=== PATIENT | male | born 1980 | race Caucasian/White ===

== ENCOUNTER → 2020-06-30 | Outpatient (CLI) | payer OTHER ==
[~2020-06-30] MED LIST: ASPIRIN EC81 MG PO; ATORVASTATIN CA10 MG PO; BENICAR20 MG PO; CARVEDILOL25 MG PO; D3-501250 MCG PO; ELIQUIS 5 MG TAB5 MG PO; FUROSEMIDE40 MG PO; IRON325 M1 PO; K-DUR TAB 20 M20 MEQ PO; LEVOTHYROXINE75 MC1 PO; LYRICA225 MG PO; NESINA25 MG PO
== END ==
LOC: HEART 5 09:21
DX: I11.9 Hypertensive heart disease without heart failure (principal); R06.02 Shortness of breath; I07.1 Rheumatic tricuspid insufficiency; I27.20 Pulmonary hypertension, unspecified; I31.3 Pericardial effusion (noninflammatory); R93.1 Abnormal findings on diagnostic imaging of heart and coronary circulation
CPT/HCPCS: 93306

== ENCOUNTER 2020-10-11 04:09 | Inpatient (IN) | payer OTHER ==
[~2020-10-11] VITALS: Ht 185.4 cm; Wt 168.3 kg
[2020-10-11 05:35] LABS: HEMOGLOBIN 13.3 gm/dl (14.0-17.5); RED BLOOD COUNT 5.31 M/UL (4.20-5.50); WHITE BLOOD COUNT 6.4 K/UL (4.5-11.0)
[2020-10-11] MEDS ORDERED: K-DUR TAB 20 M20 MEQ PO (10:00)
[2020-10-11] MEDS ORDERED: IRON325 M1 PO (10:00)
[2020-10-11] MEDS ORDERED: ATORVASTATIN CA10 MG PO (10:00)
[2020-10-11] MEDS ORDERED: BENICAR20 MG PO (10:01)
[2020-10-11] MEDS ORDERED: FUROSEMIDE40 MG PO (10:01)
[2020-10-11] MEDS ORDERED: LEVOTHYROXINE75 MC1 PO (10:01)
[2020-10-11] MEDS ORDERED: LYRICA225 MG PO (10:02)
[2020-10-11] MEDS ORDERED: CARVEDILOL25 MG PO (10:03)
[2020-10-11] MEDS ORDERED: ASPIRIN EC81 MG PO (10:03)
[2020-10-11] MEDS ORDERED: NESINA25 MG PO (10:03)
[2020-10-11] MEDS ORDERED: D3-501250 MCG PO (10:05)
[2020-10-12 06:16] LABS: HEMOGLOBIN 12.1 gm/dl (14.0-17.5); RED BLOOD COUNT 4.87 M/UL (4.20-5.50)
[2020-10-12 06:17] LABS: WHITE BLOOD COUNT 3.5 K/UL (4.5-11.0)
[2020-10-12 06:31] LABS: BUN/CREATININE RATIO 18 (0-10)
[2020-10-13 05:42] LABS: HEMOGLOBIN 12.9 gm/dl (14.0-17.5); RED BLOOD COUNT 5.15 M/UL (4.20-5.50)
[2020-10-13 05:51] LABS: WHITE BLOOD COUNT 5.1 K/UL (4.5-11.0)
[2020-10-13 06:02] LABS: BUN/CREATININE RATIO 23 (0-10)
[2020-10-14 04:19] LABS: RED BLOOD COUNT 5.22 M/UL (4.20-5.50)
[2020-10-14 04:27] LABS: WHITE BLOOD COUNT 6.6 K/UL (4.5-11.0)
[2020-10-14 04:43] LABS: BUN/CREATININE RATIO 23 (0-10)
--- NOTE | 2020-10-14 10:00 | NUR ---
PATIENT O2 SAT ON ROOM AIR 99% AT REST. 97% WITH ACTIVITY ON ROOMAIR. WCTM
[2020-10-15 06:37] LABS: HEMOGLOBIN 13.2 gm/dl (14.0-17.5); RED BLOOD COUNT 5.27 M/UL (4.20-5.50); WHITE BLOOD COUNT 7.5 K/UL (4.5-11.0)
[2020-10-15] MEDS ORDERED: ELIQUIS 5 MG TAB5 MG PO (09:12)
--- NOTE | 2020-10-15 10:03 | NUR ---
10/15/20 1000 REFUSED TO HAVE BLOOD PRESSURE RECHECKED
== END 2020-10-15 10:00 | disposition home or self-care (01) | DRG 871 ==
LOC: ER1 04:09 → MED SURG 4 08:23 → CDU 08:23 → MED SURG 4 13:11
PROVIDERS: Internal Medicine; Internal Medicine Infectious Disease; Physician Assistant; ADMIT Internal Medicine
PROC: 8E0ZXY6 Isolation (ICD-10-PCS; principal; 2020-10-12)
PROC: XW033E5 Introduction of Remdesivir Anti-infective into Peripheral Vein, Percutaneous Approach, New Technology Group 5 (ICD-10-PCS; 2020-10-12)
DX: A41.9 Sepsis, unspecified organism (principal); U07.1 COVID-19; J12.82 Pneumonia due to coronavirus disease 2019; J96.01 Acute respiratory failure with hypoxia; I13.0 Hypertensive heart and chronic kidney disease with heart failure and stage 1 through stage 4 chronic kidney disease, or unspecified chronic kidney disease; I50.22 Chronic systolic (congestive) heart failure; N17.9 Acute kidney failure, unspecified; R65.20 Severe sepsis without septic shock; E11.22 Type 2 diabetes mellitus with diabetic chronic kidney disease; N18.30 Chronic kidney disease, stage 3 unspecified; I48.0 Paroxysmal atrial fibrillation; K80.80 Other cholelithiasis without obstruction; Z79.899 Other long term (current) drug therapy; Z79.82 Long term (current) use of aspirin; R00.0 Tachycardia, unspecified; Z88.1 Allergy status to other antibiotic agents; E66.01 Morbid (severe) obesity due to excess calories; E03.9 Hypothyroidism, unspecified; E78.5 Hyperlipidemia, unspecified; R50.9 Fever, unspecified; I89.0 Lymphedema, not elsewhere classified; I87.2 Venous insufficiency (chronic) (peripheral)
CPT/HCPCS: ECHO; 0240U; 36415; 36600; 71045; 71250; 76705; 80048; 80053; 81001; 82728; 82803; 82962; 83036; 83605; 83615; 83735; 83880; 84439; 84443; 85025; 85379; 86140; 87040; 93005; 93306; 94640; 94664; 94760; 96374; 96375; 99285; J0360; J0696; J1100; J2405; J7030; J7040; Q9967

== ENCOUNTER → 2020-10-29 | Outpatient (CLI) | payer OTHER ==
[~2020-10-29] MED LIST changes: +MOBIC15 MG PO
== END ==
LOC: HEART 5 10:00
DX: R05 Cough (principal)
CPT/HCPCS: 94060; 94729

== ENCOUNTER 2020-12-16 01:17 | Emergency (ER) | payer OTHER ==
[~2020-12-16 01:17] MED LIST changes: -MOBIC15 MG PO
[2020-12-16] MEDS ORDERED: MOBIC15 MG PO (03:15)
== END 2020-12-16 03:40 | disposition home or self-care (01) ==
LOC: ER1 01:17
DX: S93.602A Unspecified sprain of left foot, initial encounter (principal); E11.9 Type 2 diabetes mellitus without complications; E03.9 Hypothyroidism, unspecified; I11.0 Hypertensive heart disease with heart failure; I50.9 Heart failure, unspecified; Z88.1 Allergy status to other antibiotic agents; W04.XXXA Fall while being carried or supported by other persons, initial encounter; Y93.89 Activity, other specified; Y92.89 Other specified places as the place of occurrence of the external cause; Y99.0 Civilian activity done for income or pay
CPT/HCPCS: 73630; 99283

== ENCOUNTER 2021-04-02 01:34 | Inpatient (IN) | payer OTHER ==
[~2021-04-02] VITALS: Ht 198 cm; Wt 183.8 kg
[~2021-04-02 01:34] MED LIST changes: -LEVOTHYROXINE75 MC1 PO; +LEVOTHYROXINE75 MCG PO; +LYRICA100 MG PO; -LYRICA225 MG PO; +MOBIC15 MG PO
[2021-04-02 07:21] LABS: HEMOGLOBIN 13.5 gm/dl (14.0-17.5); RED BLOOD COUNT 5.08 M/UL (4.20-5.50); WHITE BLOOD COUNT 16.6 K/UL (4.5-11.0)
[2021-04-02 07:54] LABS: CORONOAVIRUS 229E Not Detected (Not Detectd)
[2021-04-02 07:55] LABS: BORDETELLA PARAPERTUSSIS Not Detected (Not Detectd); BORDETELLA PERTUSSIS Not Detected (Not Detectd); CHLAMYDIA PNEUMONIAE Not Detected (Not Detectd); CORONAVIRUS HKU1 Not Detected (Not Detectd); CORONAVIRUS NL63 Not Detected (Not Detectd); CORONAVIRUS OC43 Not Detected (Not Detectd); HUMAN METAPNEUMOVIRUS Not Detected (Not Detectd); HUMAN RHINOVIRUS/ENTEROVIRUS Not Detected (Not Detectd); INFLUENZA A Not Detected (Not Detectd); INFLUENZA B Not Detected (Not Detectd); MYCOPLASMA PNEUMONIAE Not Detected (Not Detectd); PARAINFLUENZA VIRUS 1 Not Detected (Not Detectd); PARAINFLUENZA VIRUS 2 Not Detected (Not Detectd); PARAINFLUENZA VIRUS 3 Not Detected (Not Detectd); PARAINFLUENZA VIRUS 4 Not Detected (Not Detectd); RESPIRATORY SYNCYTIAL VIRUS Not Detected (Not Detectd)
[2021-04-02 09:54] LABS: SARS-CoV-2 NOT DETECTED (Not Detectd)
[2021-04-02] MEDS ORDERED: CEPHALEXIN500 MG PO (12:45)
[2021-04-02] MEDS ORDERED: BUMETANIDE2 MG PO (12:49)
[2021-04-03 03:17] LABS: HEMOGLOBIN 12.8 gm/dl (14.0-17.5); RED BLOOD COUNT 4.88 M/UL (4.20-5.50)
[2021-04-03 03:19] LABS: WHITE BLOOD COUNT 10.6 K/UL (4.5-11.0)
[2021-04-04 03:40] LABS: HEMOGLOBIN 12.5 gm/dl (14.0-17.5); RED BLOOD COUNT 4.89 M/UL (4.20-5.50); WHITE BLOOD COUNT 10.6 K/UL (4.5-11.0)
[2021-04-05 04:18] LABS: HEMOGLOBIN 12.4 gm/dl (14.0-17.5); RED BLOOD COUNT 4.87 M/UL (4.20-5.50)
[2021-04-05 04:24] LABS: WHITE BLOOD COUNT 7.6 K/UL (4.5-11.0)
[2021-04-06 04:45] LABS: RED BLOOD COUNT 4.91 M/UL (4.20-5.50)
[2021-04-06 08:13] LABS: COMPLEMENT C3, SERUM 142 mg/dL (82-167); COMPLEMENT C4, SERUM 42 mg/dL (12-38)
[2021-04-06 11:13] LABS: ANTI-CENTROMERE B ANTIBODIES <0.2 AI (0.0-0.9); ANTI-DNA (DS) AB QN <1 IU/mL (0-9); ANTI-JO-1 <0.2 AI (0.0-0.9); ANTICHROMATIN ANTIBODIES <0.2 AI (0.0-0.9); ANTIRIBOSOMAL P ANTIBODIES <0.2 AI (0.0-0.9); ANTISCLERODERMA-70 ANTIBODIES <0.2 AI (0.0-0.9); RNP ANTIBODIES 0.5 AI (0.0-0.9); SJOGREN'S ANTI-SS-A 1.4 AI (0.0-0.9); SJOGREN'S ANTI-SS-B <0.2 AI (0.0-0.9); SMITH ANTIBODIES <0.2 AI (0.0-0.9); SMITH/RNP ANTIBODIES <0.2 AI (0.0-0.9)
[2021-04-06 12:13] LABS: A/G RATIO 0.7 (0.7-1.7); ALBUMIN 2.7 g/dL (2.9-4.4); ALPHA-1-GLOBULIN 0.4 g/dL (0.0-0.4); ALPHA-2-GLOBULIN 0.9 g/dL (0.4-1.0); BETA GLOBULIN 1.2 g/dL (0.7-1.3); GAMMA GLOBULIN 1.7 g/dL (0.4-1.8); GLOBULIN, TOTAL 4.1 g/dL (2.2-3.9); M-SPIKE Not Observed g/dL (Not Observed); PROTEIN, TOTAL, SERUM 6.8 g/dL (6.0-8.5)
[2021-04-06 16:13] LABS: ATYPICAL PANCA <1:20 titer (Neg:<1:20); CYTOPLASMIC (C-ANCA) <1:20 titer (Neg:<1:20); PERINUCLEAR (P-ANCA) <1:20 titer (Neg:<1:20)
[2021-04-07 03:54] LABS: HEMOGLOBIN 11.9 gm/dl (14.0-17.5); RED BLOOD COUNT 4.6 M/UL (4.20-5.50); WHITE BLOOD COUNT 6.7 K/UL (4.5-11.0)
[2021-04-07 15:13] LABS: M-SPIKE, % Not Observed % (Not Observed); PROTEIN,TOTAL,URINE 129.9 mg/dL (Not Estab.)
[2021-04-10 03:19] LABS: HEMOGLOBIN 11.4 gm/dl (14.0-17.5); RED BLOOD COUNT 4.5 M/UL (4.20-5.50); WHITE BLOOD COUNT 5.3 K/UL (4.5-11.0)
[2021-04-13] MEDS ORDERED: ISOSORBIDE MONO30 MG PO (09:03)
[2021-04-13] MEDS ORDERED: ASPIRIN EC81 MG PO (09:03)
[2021-04-13] MEDS ORDERED: AMLODIPINE BESYL5 MG PO (09:03)
[2021-04-13] MEDS ORDERED: BUMETANIDE2 MG PO (09:03)
== END 2021-04-13 11:53 | disposition home or self-care (01) | DRG 291 ==
LOC: ER1 01:34 → PROG CARE 11:36 → CDU 11:36 → PROG CARE 20:30
PROVIDERS: Internal Medicine; Internal Medicine Nephrology; Physician Assistant Medical; ADMIT Internal Medicine
PROC: B24BZZZ Ultrasonography of Heart with Aorta (ICD-10-PCS; principal; 2021-04-02)
DX: I13.0 Hypertensive heart and chronic kidney disease with heart failure and stage 1 through stage 4 chronic kidney disease, or unspecified chronic kidney disease (principal); Z20.822 Contact with and (suspected) exposure to COVID-19; I50.43 Acute on chronic combined systolic (congestive) and diastolic (congestive) heart failure; L03.116 Cellulitis of left lower limb; L03.115 Cellulitis of right lower limb; N17.9 Acute kidney failure, unspecified; I48.92 Unspecified atrial flutter; E87.3 Alkalosis; Z68.42 Body mass index [BMI] 45.0-49.9, adult; I25.5 Ischemic cardiomyopathy; E66.01 Morbid (severe) obesity due to excess calories; I16.0 Hypertensive urgency; N18.30 Chronic kidney disease, stage 3 unspecified; E03.9 Hypothyroidism, unspecified; E11.22 Type 2 diabetes mellitus with diabetic chronic kidney disease; E11.51 Type 2 diabetes mellitus with diabetic peripheral angiopathy without gangrene; I89.0 Lymphedema, not elsewhere classified; I08.1 Rheumatic disorders of both mitral and tricuspid valves; E78.5 Hyperlipidemia, unspecified; I87.8 Other specified disorders of veins; I48.91 Unspecified atrial fibrillation; Z79.01 Long term (current) use of anticoagulants; Z79.82 Long term (current) use of aspirin; Z79.4 Long term (current) use of insulin; Z88.1 Allergy status to other antibiotic agents; Z87.01 Personal history of pneumonia (recurrent); Z82.49 Family history of ischemic heart disease and other diseases of the circulatory system; Z91.14 Patient's other noncompliance with medication regimen
CPT/HCPCS: 36415; 71045; 80048; 80053; 81001; 82550; 82553; 82570; 82728; 82803; 82962; 83036; 83516; 83540; 83550; 83605; 83735; 83874; 83880; 83883; 84100; 84155; 84156; 84165; 84166; 84439; 84443; 84484; 85025; 85027; 85610; 85730; 86140; 86160; 86256; 86335; 87040; 87633; 93005; 93925; 93970; 96374; 96375; 99285; J0360; J1250; J1335; J1940; J2020; P9047; Q9957